=== PATIENT | female | born 1990 | race Caucasian/White ===

== ENCOUNTER → 2017-06-09 | Outpatient (CLI) | payer OTHER | LOC: BRMIMAGING 12:27 | PROVIDERS: ATTEND Internal Medicine | DX: M50.022 Cervical disc disorder at C5-C6 level with myelopathy (principal); M47.812 Spondylosis without myelopathy or radiculopathy, cervical region; M62.830 Muscle spasm of back; M25.561 Pain in right knee; M25.562 Pain in left knee | CPT/HCPCS: 72052-PO; 73562-PO ==